=== PATIENT | female | born 1970 | race Caucasian/White ===

== ENCOUNTER 2018-12-16 13:25 | Emergency (ER) | payer BC ==
[~2018-12-16] VITALS: Ht 167.6 cm; Wt 81.8 kg
--- NOTE | 2018-12-16 13:36 | NUR ---
EKG [id number]
[2018-12-16 14:24] LABS: BASOPHILS % (AUTO) 0.4 % (0-1); EOSINOPHILS % (AUTO) 0.8 % (0-6); HEMATOCRIT 34.7 % (35.0-45.0); HEMOGLOBIN 11.6 g/dl (12.0-16.0); LYMPHOCYTES # (AUTO) 1.3 X10'3 (1.1-4.8); LYMPHOCYTES % (AUTO) 30.9 % (21-51); MEAN CORPUSCULAR HEMOGLOBIN 28.5 PG (27.0-31.0); MEAN CORPUSCULAR HGB CONC 33.5 g/dL (33.0-36.5); MEAN CORPUSCULAR VOLUME 85.3 FL (78-98); MEAN PLATELET VOLUME 7.5 FL (7.4-10.4); MONOCYTES # (AUTO) 0.4 X10'3 (0-0.9); MONOCYTES % (AUTO) 10.3 % (2-12); NEUTROPHILS # (AUTO) 2.5 X10'3 (1.8-7.7); NEUTROPHILS % (AUTO) 57.6 % (42-75); PLATELET COUNT 180 X10'3 (140-440); RED BLOOD COUNT 4.07 X10'6 (4.20-5.60); RED CELL DISTRIBUTION WIDTH 13.3 % (11.5-14.5); WHITE BLOOD COUNT 4.3 X10'3 (4.5-11.0)
[2018-12-16 14:38] LABS: ALANINE AMINOTRANSFERASE 34 U/L (12-78); ALBUMIN 3.7 G/DL (3.4-5.0); ALKALINE PHOSPHATASE 68 IU/L (46-116); ANION GAP 4 (8-16); ASPARTATE AMINO TRANSFERASE 20 U/L (10-37); BILIRUBIN,TOTAL 0.4 MG/DL (0.1-1.0); BLOOD UREA NITROGEN 23 MG/DL (7-18); BUN/CREATININE RATIO 24.7 (6.6-38.0); CHLORIDE 104 MMOL/L (99-107); CREATININE 0.93 MG/DL (0.40-0.90); GLUCOSE 102 MG/DL (70-104); SODIUM 139 MMOL/L (135-145); TOTAL CARBON DIOXIDE 31.2 MMOL/L (24-32); TOTAL PROTEIN 7.3 G/DL (6.4-8.2); eGFR 64 ML/MIN
[2018-12-16 14:40] LABS: PARTIAL THROMBOPLASTIN TIME 29 SECONDS (22-32); PROTHROMBIN TIME 10.6 SECONDS (9.0-12.0)
--- NOTE | 2018-12-16 16:30 | NUR ---
Patient received in bed 11.
--- NOTE | 2018-12-16 17:29 | NUR ---
awaiting for d dimer result.
[2018-12-16 17:51] VITALS: BP 134/73
[2018-12-16 17:57] LABS: D-DIMER 0.35 MG/L FEU (0-0.50)
== END 2018-12-16 18:42 | disposition home or self-care (01) ==
LOC: ER 13:26
DX: R07.89 Other chest pain (principal); R06.02 Shortness of breath; Z88.1 Allergy status to other antibiotic agents; Z88.2 Allergy status to sulfonamides; Z91.040 Latex allergy status
CPT/HCPCS: 36415; 71045; 80053; 84484; 85025; 85379; 85610; 85730; 93005; 99284

== ENCOUNTER 2020-08-27 15:56 | Emergency (ER) | payer BC, OTHER ==
[~2020-08-27] VITALS: Ht 167.6 cm; Wt 79.0 kg
[2020-08-27 16:16] VITALS: BP 120/88
[2020-08-27] MEDS ORDERED: CYCL-1 PO (17:49)
== END 2020-08-27 18:07 | disposition home or self-care (01) ==
LOC: ER 15:58
DX: M54.2 Cervicalgia (principal); R51.9 Headache, unspecified; Z72.89 Other problems related to lifestyle; Z88.1 Allergy status to other antibiotic agents; Z91.040 Latex allergy status; Z88.8 Allergy status to other drugs, medicaments and biological substances; Z79.899 Other long term (current) drug therapy; V87.7XXA Person injured in collision between other specified motor vehicles (traffic), initial encounter; Y93.89 Activity, other specified; Y92.89 Other specified places as the place of occurrence of the external cause; Y99.8 Other external cause status
CPT/HCPCS: 70450; 72125; 99285